=== PATIENT | male | born 2000 | race Two or more races ===

== ENCOUNTER 2022-05-24 13:02 | Inpatient (IN) | payer OTHER ==
[~2022-05-24] VITALS: Ht 167.6 cm; Wt 81.2 kg
[2022-05-24] MEDS ORDERED: HUMALOG100 UNIT/2 (13:43)
== END 2022-05-26 18:26 | disposition home or self-care (01) | DRG 639 ==
LOC: ER 13:02 → MEDJ 19:57
PROVIDERS: ADMIT Internal Medicine; ATTEND Internal Medicine
DX: E10.10 Type 1 diabetes mellitus with ketoacidosis without coma (principal); Z79.4 Long term (current) use of insulin; Z20.822 Contact with and (suspected) exposure to COVID-19

== ENCOUNTER 2024-11-16 15:51 | Emergency (ER) | payer OTHER ==
[~2024-11-16] VITALS: Ht 167.6 cm; Wt 91.6 kg
[~2024-11-16 15:51] MED LIST: HUMALOG100 UNIT/2
[2024-11-16] MEDS ORDERED: KETOROLAC TROMETHAMINE 60 MG VIAL IM STA (17:37)
[2024-11-16] MEDS ORDERED: ORPHENADRINE CITRATE 30 MG/ML AMPUL IM STA (17:38)
[2024-11-16] MEDS ORDERED: ORPHENADRINE CITRATE 30 MG/ML AMPUL ONE (17:48)
[2024-11-16] MEDS ORDERED: KETOROLAC TROMETHAMINE 60 MG VIAL IM ONE (17:48)
== END 2024-11-16 17:54 | disposition home or self-care (01) ==
LOC: ER 15:53
DX: M62.830 Muscle spasm of back (principal); Z91.038 Other insect allergy status

== ENCOUNTER 2024-11-22 15:55 | Emergency (ER) | payer OTHER ==
[~2024-11-22] VITALS: Ht 167.6 cm; Wt 90.7 kg
[2024-11-22] MEDS ORDERED: ORPHENADRINE CITRATE 30 MG/ML AMPUL IM ONE (18:15)
[2024-11-22] MEDS ORDERED: KETOROLAC TROMETHAMINE 30 MG VIAL IM ONE (18:15)
[2024-11-22 19:52] LABS: HEMATOCRIT 45.7 % (39.0-48.0); HEMOGLOBIN 15.9 g/dL (13-16.00); MEAN CELL VOLUME 78.4 fL (80.0-100.00); MEAN CORPUSCULAR HEMOGLOBIN 27.2 pg (27.00-32.0); MEAN CORPUSCULAR HGB CONC 34.7 g/dl (32.0-36.0); PLATELET COUNT 244 K/uL (150-450); RED BLOOD COUNT 5.82 M/uL (4.00-6.00); RED CELL DISTRIBUTION WIDTH 13.8 % (11.5-14.5)
[2024-11-22 19:52] LABS: URINE APPEARANCE Clear; URINE BILIRRUBIN Negative (NEGATIVE); URINE BLOOD Negative; URINE COLOR Yellow; URINE GLUCOSE Negative (NEGATIVE); URINE KETONE Negative (NEGATIVE); URINE LEUKOCYTE Negative; URINE NITRATE Negative; URINE PROTEIN Negative (NEGATIVE); URINE UROBILINOGEN 0.2 E.U./dl
[2024-11-22 19:56] LABS: URINE BACTERIA 8.5 uL (0.0-1933); URINE EPITHELIAL CELLS 5.6 uL (0.0-38.8); URINE WBC 6.1 uL (0.0-23.2)
[2024-11-22 20:19] LABS: ALBUMIN 4.1 gm/dL (3.4-5.0); BILIRUBIN TOTAL 0.77 mg/dL (0.3-1.2); CALCIUM 9.3 mg/dL (8.5-10.1); CREATININE SERUM 1.14 mg/dL (0.70-1.30); GFR 78.92; POTASSIUM 3.98 mEq/L (3.5-5.1); TOTAL PROTEIN 8.1 gm/dL (6.4-8.2)
[2024-11-22] MEDS ORDERED: NORFLEX100MG PO (23:30)
[2024-11-22] MEDS ORDERED: DICLOFENAC SODI50 MG PO (23:30)
== END 2024-11-23 00:34 ==
LOC: ER 15:58
PROVIDERS: General Practice
DX: M54.16 Radiculopathy, lumbar region (principal); E11.9 Type 2 diabetes mellitus without complications; Z79.4 Long term (current) use of insulin; Z91.038 Other insect allergy status